=== PATIENT | male | born 1980 | race American Indian/Alaskan Native ===

== ENCOUNTER 2021-09-18 08:36 | Emergency (ER) | payer SELFPAY ==
[2021-09-18 08:45] VITALS: BP 147/94
--- NOTE | 2021-09-18 09:22 | XRay Report ---
CHEST 2 VIEWS INDICATION: chest pain, N/V. COMPARISON: None FINDINGS: SUPPORT DEVICES: None. HEART: Within normal limits. LUNGS/PLEURA: No acute air space or interstitial disease. No pneumothorax. ADDITIONAL FINDINGS: None. IMPRESSION: 1. No acute findings. Signer Name: James Chapman MD Signed: 09/18/2021 9:18 AM Workstation Name: [id number]
[2021-09-18 10:09] LABS: Basophils % (Auto) 0.3 % (0.0-1.8); Hematocrit 45.6 % (35.5-45.6); Hemoglobin 14.6 gm/dl (11.8-15.2); Lymphocytes # (Auto) 1.1 K/mm3 (1.2-5.4); Lymphocytes % (Auto) 10.8 % (13.4-35.0); Mean Corpuscular HGB Conc 32 % (32-34); Mean Corpuscular Volume 74 fl (84-94); Monocytes # (Auto) 0.6 K/mm3 (0.0-0.8); Monocytes % (Auto) 5.5 % (0.0-7.3); Platelet Count 615 K/mm3 (140-440); Red Blood Count 6.12 M/mm3 (3.65-5.03); Red Cell Distribution Width 16.1 % (13.2-15.2)
[2021-09-18 10:25] LABS: Alanine Aminotransferase 23 units/L (7-56); BUN/Creatinine Ratio 19; Blood Urea Nitrogen 19 mg/dL (9-20); Calcium 10.8 mg/dL (8.4-10.2); Hemolysis Index 8
[2021-09-18] MEDS ORDERED: ONDANSETRON 4 MG/2 ML INJ IV ONE (10:49)
[2021-09-18] MEDS ORDERED: KETOROLAC 30 MG/1 ML INJ IV ONE (10:49)
[2021-09-18] MEDS ORDERED: SODIUM CHLORIDE 0.9% 1000 ML 1,000 ML IV ONE (10:49)
--- NOTE | 2021-09-18 10:52 | Emergency Department Report ---
ED General Adult HPI - General Chief complaint: Chest Pain Stated complaint: CP/ SOB Time Seen by Provider: 09/18/21 09:13 Source: patient Mode of arrival: Ambulatory Limitations: No Limitations - History of Present Illness Initial comments: Patient is 41 years old male with no significant past medical history. Patient presented to the ER complaining of generalized body ache, chest pain, headache, nausea vomiting and diarrhea for the last few days. Patient stated that he is unable to keep anything down. Patient is also complaining of runny nose, cough and congestion. Patient is not vaccinated for COVID-19. - Related Data Allergies Allergy/AdvReac Type Severity Reaction Status Date / Time No Known Allergies Allergy Unverified 09/18/21 08:37 ED Review of Systems ROS: Stated complaint: CP/ SOB Other details as noted in HPI Comment: All other systems reviewed and negative Constitutional: denies: chills, fever ENT: congestion Respiratory: denies: cough, shortness of breath, SOB with exertion Cardiovascular: denies: chest pain, palpitations Gastrointestinal: nausea, vomiting, diarrhea. denies: abdominal pain, constipation, hematemesis, melena, hematochezia Musculoskeletal: back pain, arthralgia, myalgia Neurological: headache. denies: weakness, numbness, paresthesias, confusion, abnormal gait ED Past Medical Hx - Past Medical History Previous Medical History?: No - Surgical History Past Surgical History?: Yes Additional Surgical History: HERNIA ED Physical Exam - General Limitations: No Limitations General appearance: alert, in no apparent distress - Head Head exam: Present: atraumatic, normocephalic, normal inspection - ENT ENT exam: Present: mucous membranes dry - Neck Neck exam: Present: normal inspection, full ROM. Absent: tenderness, meningismus - Respiratory Respiratory exam: Present: normal lung sounds bilaterally - Cardiovascular Cardiovascular Exam: Present: tachycardia - GI/Abdominal GI/Abdominal exam: Present: soft, normal bowel sounds. Absent: distended, tenderness, guarding, rebound, rigid, organomegaly, mass, bruit, pulsatile mass, hernia - Extremities Exam Extremities exam: Present: normal inspection, full ROM, normal capillary refill. Absent: tenderness, pedal edema, joint swelling, calf tenderness - Back Exam Back exam: Present: normal inspection, full ROM. Absent: CVA tenderness (R), CVA tenderness (L) - Neurological Exam Neurological exam: Present: alert, oriented X3, CN II-XII intact, normal gait, reflexes normal. Absent: motor sensory deficit - Psychiatric Psychiatric exam: Present: normal mood - Skin Skin exam: Present: warm, intact, normal color ED Course Vital Signs 09/18/21 08:42 Temperature 98.5 F Pulse Rate 108 H Respiratory 24 Rate Blood Pressure 147/94 O2 Sat by Pulse 100 Oximetry ED Medical Decision Making - Lab Data Result diagrams: 09/18/21 09:54 09/18/21 09:54 - EKG Data -: EKG Interpreted by Ny EKG shows normal: sinus rhythm Rate: normal - EKG Data Interpretation: no acute changes - Radiology Data Radiology results: report reviewed - Medical Decision Making Patient is 41 years old male with no significant past medical history. Patient presented to the ER complaining of generalized body ache, chest pain, headache, nausea vomiting and diarrhea for the last few days. Patient stated that he is unable to keep anything down. Patient is also complaining of runny nose, cough and congestion. Patient is not vaccinated for COVID-19. EKG is unremarkable. Labs reviewed and is unremarkable. Chest x-ray is negative for acute finding. Patient received normal saline, Zofran and Toradol. Patient stated that he is feeling much better. Patient advised to follow-up with his primary doctor in the next 2 to 3 days and to return to the ER if he develop any new symptoms. Critical care attestation.: If time is entered above; I have spent that time in minutes in the direct care of this critically ill patient, excluding procedure time. ED Disposition Clinical Impression: Acute nausea with nonbilious vomiting, Dehydration, Viral illness Disposition: 01 HOME / SELF CARE / HOMELESS Is pt being admited?: No Condition: Stable Instructions: Dehydration, Adult, [id number], Nausea and Vomiting, Adult, [id number] Referrals: PRIMARY CARE, [Primary Care Provider] - 3-5 Days
--- NOTE | 2021-09-20 10:45 | Electrocardiograph Report ---
[facility] Test Date: 2021-09-18 Test Time: 08:46:11 Pat Name: JAI SANTACRUZ Department: Room: Gender: M Pot Fisher: RADHA : 1980 Requested By: SANDEEP KENNEY Order Number: [id number] Reading MD: Hao Hillman Measurements Intervals [place] Rate: 100 P: 68 NC: 150 QRS: 74 QRSD: 75 T: -17 QT: 346 QTc: 447 Interpretive Statements Sinus tachycardia No previous ECG available for comparison Electronically Signed On 09-20-2021 10:45:09 EST by Hao Hillman
== END 2021-09-18 13:06 | disposition home or self-care (01) ==
LOC: ED 08:36
DX: E86.0 Dehydration (principal); B34.9 Viral infection, unspecified; Z98.890 Other specified postprocedural states
CPT/HCPCS: 36415; 71046; 80053; 84484; 85025; 93005; 96361; 96374; 96375; 99284; J1885; J2405; J7030; Q0162